=== PATIENT | female | born 1955 | race Caucasian/White ===

== ENCOUNTER 2016-07-01 15:28 | Emergency (ER) | payer BC ==
--- NOTE | 2016-07-03 13:16 | ER ---
ADMIT: 07/01/2016 RM/LOC: [facility] MR#: [id number] [id number] [id number] [place] [address] Emergency Room Report SEX: F AGE: 60 : 1955 DATE: 07/01/2016 HISTORY OF PRESENT ILLNESS: A 60-year-old female who comes in with 1 hour onset of blurry vision and dizziness, sensation of falling to one side. See T- sheet for remainder of history and physical. Her stroke scale was 2. EMERGENCY ROOM COURSE: CT scan of the head was unremarkable. MRI of the brain was also unremarkable. Lab work was significant for white count of 4.8, glucose 118. I discussed her care with Dr. Mayer, who suggested we try meclizine and discharge her, and they would follow her up as an outpatient in the clinic. DIAGNOSIS: Vertigo/labyrinthitis. PLAN: Instructed to follow up on Monday with Dr. Mayer. Luisito Stratton MD/ nilo JOB #: [id number] CC: Luisito Stratton MD, Attending Physician Christian Mayer MD, Family Physician
== END 2016-07-01 19:00 | disposition home or self-care (01) ==
LOC: ER 15:28
DX: H83.09 Labyrinthitis, unspecified ear (principal); R42 Dizziness and giddiness; I10 Essential (primary) hypertension; M32.9 Systemic lupus erythematosus, unspecified; Z98.890 Other specified postprocedural states; Z79.899 Other long term (current) drug therapy; Z88.0 Allergy status to penicillin

== ENCOUNTER → 2016-07-15 | Outpatient (CLI) | payer BC | END | disposition home or self-care (01) | LOC: RAD.S 07-14 11:00 | DX: R41.0 Disorientation, unspecified (principal); I65.22 Occlusion and stenosis of left carotid artery ==